=== PATIENT | male | born 1965 | race American Indian/Alaskan Native ===

== ENCOUNTER 2019-08-03 19:30 | Inpatient (IN) | payer MEDICARE ==
--- NOTE | 2019-08-03 20:54 | Emergency Department Report ---
Blank Doc - Documentation Documentation: 54-year-old male that presents with CP and SOB. This initial assessment/diagnostic orders/clinical plan/treatment(s) is/are subject to change based on patient's health status, clinical progression and re- assessment by fellow clinical providers in the ED. Further treatment and workup at subsequent clinical providers discretion. Patient/guardians urged not to elope from the ED as their condition may be serious if not clinically assessed and managed. Initial orders include: 1- Patient sent to MAIN for further evaluation and treatment 2- labs 3- EKG 4- CXR
[2019-08-03 21:16] LABS: Basophils # (Auto) 0.1 K/mm3 (0.0-0.1); Basophils % (Auto) 1.3 % (0.0-1.8); Eosinophils # (Auto) 0.1 K/mm3 (0.0-0.4); Eosinophils % (Auto) 1.3 % (0.0-4.3); Hematocrit 43.1 % (35.5-45.6); Hemoglobin 14.3 gm/dl (11.8-15.2); Lymphocytes # (Auto) 2.8 K/mm3 (1.2-5.4); Lymphocytes % (Auto) 46.7 % (13.4-35.0); Mean Corpuscular HGB Conc 33 % (32-34); Mean Corpuscular Volume 91 fl (84-94); Monocytes # (Auto) 0.4 K/mm3 (0.0-0.8); Monocytes % (Auto) 6.2 % (0.0-7.3); Platelet Count 212 K/mm3 (140-440); Red Blood Count 4.76 M/mm3 (3.65-5.03); Red Cell Distribution Width 15.3 % (13.2-15.2)
[2019-08-03 21:26] LABS: INR 1.04 (0.87-1.13)
[2019-08-03 21:27] LABS: Partial Thromboplastin Time 27.4 Sec. (24.2-36.6)
[2019-08-03 21:41] LABS: Alanine Aminotransferase 10 units/L (7-56); Albumin 3.8 g/dL (3.9-5); BUN/Creatinine Ratio 10; Blood Urea Nitrogen 9 mg/dL (9-20); Calcium 9.2 mg/dL (8.4-10.2); Hemolysis Index 4
--- NOTE | 2019-08-03 21:45 | XRay Report ---
CHEST 2 VIEWS INDICATION / CLINICAL INFORMATION: Chest Pain. COMPARISON: 07/25/2019 FINDINGS: SUPPORT DEVICES: None. HEART / MEDIASTINUM: Moderately enlarged but stable. LUNGS / PLEURA: Chronically increased interstitial markings are seen unchanged. There may be trace ef fusions. No pneumothorax. Right middle lobe density may be chronic. ADDITIONAL FINDINGS: No significant additional findings. IMPRESSION: 1. No significant change Signer Name: Santiago Chester MD Signed: 08/03/2019 9:40 PM Workstation Name: [employer]
[2019-08-03 23:46] LABS: Chol/HDL Ratio 2.61 %; HDL Cholesterol 49 mg/dL (40-59); LDL Cholesterol,Direct 77 mg/dL (50-130)
[2019-08-04] MEDS ORDERED: methylPREDNISolone Sod Succinate 125 MG/2 ML INJ IV ONE (00:53)
[2019-08-04] MEDS ORDERED: FUROSEMIDE 40 MG/4 ML INJ IV ONE (00:53)
[2019-08-04] MEDS ORDERED: IPRATROPIUM/ALBUTEROL SULFATE 3 ML AMPUL.NEB IH ONE (00:53)
[2019-08-04] MEDS ORDERED: ASPIRIN 81 MG TAB CHEW PO ONE (00:54)
--- NOTE | 2019-08-04 01:51 | Emergency Department Report ---
ED Chest Pain HPI - General Chief Complaint: Chest Pain Stated Complaint: CHEST TIGHTNESS/VERONIQUE Time Seen by Provider: 08/03/19 20:53 Source: patient Mode of arrival: Ambulatory Limitations: No Limitations - History of Present Illness Initial Comments: 54-year-old -Portuguese male presents to the emergency department with a complaint of chest tightness and shortness of breath that started this morning. The patient has a past medical history of CHF, hypertension, coronary artery disease with cardiac stents. He is a tobacco smoker but denies any illicit drug use. Patient says that he has been taking his home medications, including diuretics, and has also used an albuterol inhaler, without any relief. Patient was admitted here about 1.5 weeks ago for similar symptoms and also had pneumonia at that time. The patient had a cardiac catheterization done on 06/16 that showed some patent stents and severe LV dysfunction and nonischemic cardiomyopathy. He does not have a primary care physician. 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 Severity scale (0 -10): 3 - Related Data Previous Rx's Medication Instructions Recorded Last Taken Type Amoxicillin/Potassium Clav 1 each PO BID #14 tablet 07/28/19 Unknown Rx [Augmentin 875-125 Tablet] Aspirin [Aspirin BABY CHEW TAB] 81 mg PO QDAY #30 tab.chew 07/28/19 Unknown Rx Carvedilol [Coreg] 3.125 mg PO BID #60 tablet 07/28/19 Unknown Rx Famotidine [Pepcid] 20 mg PO BID #60 tablet 07/28/19 Unknown Rx Furosemide [Lasix TAB] 40 mg PO QDAY #30 tablet 07/28/19 Unknown Rx Lisinopril [Zestril TAB] 20 mg PO QDAY #30 tablet 07/28/19 Unknown Rx Pravastatin [Pravachol] 40 mg PO QHS #30 tablet 07/28/19 Unknown Rx Spironolactone [Aldactone] 25 mg PO QDAY #30 tablet 07/28/19 Unknown Rx Allergies Allergy/AdvReac Type Severity Reaction Status Date / Time shellfish derived Allergy Itching Verified 06/14/19 05:11 Heart Score - HEART Score History: Moderately suspicious EKG: Non-specific Age: 45-65 Risk factors: > 3 risk factors or hx of atherosclerotic disease Troponin: 1-3x normal limit HEART Score: 6 - Critical Actions Critical Actions: 4-6 pts:12-16.6% risk of adverse cardiac event. Should be admitted ED Review of Systems ROS: Stated complaint: CHEST TIGHTNESS/VERONIQUE Other details as noted in HPI Comment: All other systems reviewed and negative Constitutional: denies: chills, fever Eyes: denies: eye pain, vision change ENT: denies: ear pain, throat pain Respiratory: orthopnea, shortness of breath Cardiovascular: chest pain. denies: palpitations Gastrointestinal: denies: abdominal pain, vomiting Genitourinary: denies: dysuria, discharge Musculoskeletal: denies: back pain, arthralgia Skin: denies: rash, lesions Neurological: denies: headache, weakness ED Past Medical Hx - Past Medical History Hx Hypertension: Yes Hx Congestive Heart Failure: Yes Hx Diabetes: No Hx Asthma: No Hx COPD: No Additional medical history: HEART BLOCKAGE 30% 2-3 years ago - Surgical History Additional Surgical History: Rt eye surgery - Social History Smoking Status: Current Every Day Smoker Substance Use Type: None - Medications Home Medications: Home Medications Medication Instructions Recorded Confirmed Last Taken Type Amoxicillin/Potassium Clav 1 each PO BID #14 tablet 07/28/19 Unknown Rx [Augmentin 875-125 Tablet] Aspirin [Aspirin BABY CHEW TAB] 81 mg PO QDAY #30 tab.chew 07/28/19 Unknown Rx Carvedilol [Coreg] 3.125 mg PO BID #60 tablet 07/28/19 Unknown Rx Famotidine [Pepcid] 20 mg PO BID #60 tablet 07/28/19 Unknown Rx Furosemide [Lasix TAB] 40 mg PO QDAY #30 tablet 07/28/19 Unknown Rx Lisinopril [Zestril TAB] 20 mg PO QDAY #30 tablet 07/28/19 Unknown Rx Pravastatin [Pravachol] 40 mg PO QHS #30 tablet 07/28/19 Unknown Rx Spironolactone [Aldactone] 25 mg PO QDAY #30 tablet 07/28/19 Unknown Rx ED Physical Exam - General Limitations: No Limitations - Other Other exam information: GENERAL: The patient is well-developed well-nourished. HENT: Normocephalic. Atraumatic. Patient has moist mucous membranes. EYES: Extraocular motions are intact. NECK: Supple. Trachea is midline. CHEST/LUNGS: Coarse breath sounds throughout the chest. There is expiratory wheezing. Mild tachypnea but no accessory muscle use. There is no respiratory distress noted. HEART/CARDIOVASCULAR: Regular. There is no tachycardia. There is no murmur. ABDOMEN: Abdomen is soft, nontender. Patient has normal bowel sounds. There is no abdominal distention. SKIN: Skin is warm and dry. NEURO: The patient is awake, alert, and oriented. The patient is cooperative. The patient has no focal neurologic deficits. Normal speech. MUSCULOSKELETAL: There is no tenderness or deformity. There is no evidence of acute injury. ED Course Vital Signs 08/03/19 08/04/19 08/04/19 19:37 00:34 01:58 Temperature 98.1 F Pulse Rate 83 74 Pulse Rate [ 82 Bilateral Throughout] Respiratory 20 18 Rate Respiratory 17 Rate [Bilateral Throughout] Blood Pressure 153/117 Blood Pressure 142/111 [Left] O2 Sat by Pulse 98 95 Oximetry MELVIN score - Melvin Score Age > 65: (0) No Aspirin use within the Past 7 Days: (0) No 3 or more CAD Risk Factors: (1) Yes 2 or more Angina events in past 24 hrs: (0) No Known CAD with more than 50% Stenosis: (0) No Elevated Cardiac Markers: (1) Yes ST Deviation Greater than 0.5mm: (0) No MELVIN Score: 2 ED Medical Decision Making - Lab Data Result diagrams: 08/03/19 21:01 08/03/19 21:01 - EKG Data -: EKG Interpreted by Nc EKG shows normal: sinus rhythm, axis (left axis deviation), intervals, QRS complexes, ST-T waves (t wave inversions to lateral leads) Rate: normal - EKG Data When compared to previous EKG there are: no significant change Interpretation: unchanged when compared t (07/26/19) - Radiology Data Radiology results: image reviewed interpreted by me: Chest x-ray does not show any acute process. There are no pleural effusions, obvious pneumonia and there is no pneumothorax. - Medical Decision Making This patient presents with some acute chest pain and shortness of breath since this morning. He has some coarse breath sounds and expiratory wheezing on examination but does not appear in any respiratory distress. Chest x-ray does not show any acute process. Patient has a BNP greater than 3000 which is also increased from his most recent admission. Patient has a elevated troponin level. It does not appear clinically significant for NSTEMI, however it is increased from his previous admission and with current chest pain he will require further evaluation. We will continue to trend her troponins. The patient has been given some Lasix, Solu-Medrol, breathing treatment and aspirin. He will be admitted to the hospital for further evaluation and treatment was accepted for admission by the hospitalist, Dr. Harvey. - Differential Diagnosis SC, CHF, PE, pneumonia Critical Care Time: No Critical care attestation.: If time is entered above; I have spent that time in minutes in the direct care of this critically ill patient, excluding procedure time. ED Disposition Clinical Impression: Acute chest pain Acute exacerbation of CHF (congestive heart failure) Qualifiers: Heart failure type: combined systolic and diastolic Qualified Code(s): I50.43 - Acute on chronic combined systolic (congestive) and diastolic (congestive) heart failure COPD (chronic obstructive pulmonary disease) Qualifiers: COPD type: unspecified COPD Qualified Code(s): J44.9 - Chronic obstructive pulmonary disease, unspecified Disposition: OP ADMIT IP TO THIS HOSP Is pt being admited?: Yes Condition: Fair Instructions: Chest Pain (ED), Chronic Obstructive Pulmonary Disease (ED) Referrals: PRIMARY CARE, [Primary Care Provider] - 3-5 Days Time of Disposition: 02:59
[2019-08-04] MEDS ORDERED: ONDANSETRON 4 MG/2 ML INJ IV PRN (02:30)
[2019-08-04] MEDS ORDERED: DEXTROSE 50% IN WATER (25GM) 50 ML SYRINGE IV PRN (02:30)
--- NOTE | 2019-08-04 02:38 | History and Physical Report ---
History of Present Illness Date of examination: 08/04/19 History of present illness: 54 -year-old man in a history of hypertension, coronary artery disease, CHF comes emergency room with complaints of chest pain started yesterday. Pain is in the right chest which she describes a tightness, intermittent every 3 minutes, intensity 5/10, no radiation, cannot identify exacerbating or relieving factors. Admits to shortness of breath, no nausea vomiting, diaphoresis or palpitation. Status post cardiac cath in May Review Of Systems: Constitutional: no weight loss, fever, chills Ears, eyes, nose, mouth and throat: no nasal congestion, no nasal discharge, no sinus pressure, blurry vision, diplopia Neck: No neck pain or rigidity. Cardiovascular: No palpitations Respiratory: No shortness of breath, cough Gastrointestinal: No hematochezia, abdominal pain Genitourinary : no dysuria, frequency Musculoskeletal: no muscle ache , joint pain Integumentary: no rash, no pruritis Neurological: no parathesias, focal weakness Endocrine: no cold or heat intolerance, no polyuria or polydipsia Hematologic/Lymphatic: no easy bruising, no easy bleeding, no gland swelling Allergic/Immunologic: no urticaria, no angioedema. PAST MEDICAL HISTORY:hypertension, coronary artery disease, CHF PAST SURGICAL HISTORY: none FAMILY HISTORY:hypertension, diabetes SOCIAL HISTORY: Denies tobacco, drugs, alcohol Medications and Allergies Allergies Allergy/AdvReac Type Severity Reaction Status Date / Time shellfish derived Allergy Itching Verified 06/14/19 05:11 Home Medications Medication Instructions Recorded Confirmed Last Taken Type Amoxicillin/Potassium Clav 1 each PO BID #14 tablet 07/28/19 Unknown Rx [Augmentin 875-125 Tablet] Aspirin [Aspirin BABY CHEW TAB] 81 mg PO QDAY #30 tab.chew 07/28/19 Unknown Rx Carvedilol [Coreg] 3.125 mg PO BID #60 tablet 07/28/19 Unknown Rx Famotidine [Pepcid] 20 mg PO BID #60 tablet 07/28/19 Unknown Rx Furosemide [Lasix TAB] 40 mg PO QDAY #30 tablet 07/28/19 Unknown Rx Lisinopril [Zestril TAB] 20 mg PO QDAY #30 tablet 07/28/19 Unknown Rx Pravastatin [Pravachol] 40 mg PO QHS #30 tablet 07/28/19 Unknown Rx Spironolactone [Aldactone] 25 mg PO QDAY #30 tablet 07/28/19 Unknown Rx Exam - Physical Exam Narrative exam: General Apperance: The patient sitting in bed no acute distress HEENT: Normocephalic, atraumatic. Pupils equally round and reactive to light, extraocular movement intact, and no sclericterus or JVD or thyromegaly or nodule. Neck supple, no carotid bruit, mucous membranes moist, no exudate or erythema Heart: S1-S2, regular is rhythm Lungs: Clear to auscultation bilaterally, breathing comfortable Abdomen: Positive bowel sounds, soft, nontender, nondistended, no organomegaly Extremities: No edema cyanosis clubbing Skin: no rash, nodule, warm and dry Neuro:CN 2 -12 intact, motor/sensory intact, speech is fluent - Constitutional Vitals: Temp Pulse Resp BP Pulse Ox 98.1 F 82 17 142/111 95 08/03/19 19:37 08/04/19 01:58 08/04/19 01:58 08/04/19 00:34 08/04/19 00:34 Results - Labs CBC & Chem 7: 08/03/19 21:01 08/03/19 21:01 Labs: Abnormal lab results 08/03/19 08/03/19 08/04/19 Range/Units 21:01 21:01 00:03 RDW 15.3 H (13.2-15.2) % Lymph % (Auto) 46.7 H (13.4-35.0) % Glucose 123 H (75-100) mg/dL Total Bilirubin 1.50 H (0.1-1.2) mg/dL Troponin T 0.041 H 0.037 H (0.00-0.029) ng/mL NT-Pro-B Natriuret Pep 3172 H (0-900) pg/mL Albumin 3.8 L (3.9-5) g/dL - Imaging and Cardiology EKG: image reviewed Chest x-ray: report reviewed Assessment and Plan Asessment Chest pain CAD CHF, stable Hypertension Plan Admit to medicine Check cardiac enzymes,consult cardiology Continue appropiate medicines DVT prophalaxis
[2019-08-04] MEDS: ACETAMINOPHEN 325 MG TAB PO PRN (03:58)
[2019-08-04 05:41] LABS: Basophils % (Auto) 0.5 % (0.0-1.8); Eosinophils % (Auto) 0.5 % (0.0-4.3); Hematocrit 42.2 % (35.5-45.6); Hemoglobin 13.9 gm/dl (11.8-15.2); Lymphocytes # (Auto) 0.8 K/mm3 (1.2-5.4); Lymphocytes % (Auto) 16.5 % (13.4-35.0); Mean Corpuscular HGB Conc 33 % (32-34); Mean Corpuscular Volume 90 fl (84-94); Monocytes # (Auto) 0.1 K/mm3 (0.0-0.8); Monocytes % (Auto) 1.9 % (0.0-7.3); Platelet Count 200 K/mm3 (140-440); Red Blood Count 4.68 M/mm3 (3.65-5.03); Red Cell Distribution Width 15.3 % (13.2-15.2)
[2019-08-04 05:58] LABS: BUN/Creatinine Ratio 11; Blood Urea Nitrogen 9 mg/dL (9-20); Calcium 9.4 mg/dL (8.4-10.2); Hemolysis Index 5
[2019-08-04] MEDS: INSULIN LISPRO 100 UNIT/ML SUB-Q SCH ×4 (09:31→22:55)
[2019-08-04] MEDS ORDERED: FUROSEMIDE 40 MG TAB PO SCH (10:00)
[2019-08-04] MEDS ORDERED: ENOXAPARIN 30 MG/0.3 ML INJ SUB-Q SCH (10:00)
[2019-08-04] MEDS: carvediloL 3.125 MG TAB PO SCH ×2 (11:08→22:04)
[2019-08-04] MEDS: ASPIRIN 81 MG TAB CHEW PO SCH (11:08)
[2019-08-04] MEDS: LISINOPRIL 20 MG TAB PO SCH (11:08)
[2019-08-04] MEDS: SPIRONOLACTONE 25 MG TAB PO SCH (11:08)
[2019-08-04] MEDS: FAMOTIDINE 20 MG TAB PO SCH ×2 (11:08→22:04)
[2019-08-04] MEDS: ENOXAPARIN 40 MG/0.4 ML INJ SUB-Q SCH (11:09)
--- NOTE | 2019-08-04 13:41 | Consultation ---
History of Present Illness Consult date: 08/04/19 Requesting physician: ELAN HUNTER Consult reason: chest pain History of present illness: The pt is a 54 YO male with a past medical history of CAD s/p PCI, ICMP, HFrEF, HTN, HLP. He is followed in our office by Dr. Cassidy. He presented with c/o SOB and chest pain since yesterday. He describes his chest pain as an intermittent midsternal tightness, no clear aggravating or alleviating factors. The chest pain has resolved since admission. He denies any swelling, palpitations, n/v, diaphoresis, dizziness or syncope. Of note, pt was discharged from [facility] on 07/28/2019 following eval/management of PNA and HFrEF. LHC done 05/2019 showed left main patent, LAD patent stents, circ patent, ramus upper branch patent stent, lower branch patent, OM1 and OM2 patent, RCA mid stent patent with mild irregularities, severe LV dysfunction. Echo done 05/2019 showed EF 10-15%, mild LVH, RV systolic function mildly reduced, trace AR and MR, mild to mod TR, RVSP 36mmHg. Past History Past Medical History: other (as per HPI) Medications and Allergies Allergies Allergy/AdvReac Type Severity Reaction Status Date / Time shellfish derived Allergy Itching Verified 06/14/19 05:11 Home Medications Medication Instructions Recorded Confirmed Last Taken Type Aspirin [Aspirin BABY CHEW TAB] 81 mg PO QDAY #30 tab.chew 07/28/19 08/04/19 Unknown Rx Carvedilol [Coreg] 3.125 mg PO BID #60 tablet 07/28/19 08/04/19 Unknown Rx Famotidine [Pepcid] 20 mg PO BID #60 tablet 07/28/19 08/04/19 Unknown Rx Furosemide [Lasix TAB] 40 mg PO QDAY #30 tablet 07/28/19 08/04/19 Unknown Rx Lisinopril [Zestril TAB] 20 mg PO QDAY #30 tablet 07/28/19 08/04/19 Unknown Rx Pravastatin [Pravachol] 40 mg PO QHS #30 tablet 07/28/19 08/04/19 Unknown Rx Spironolactone [Aldactone] 25 mg PO QDAY #30 tablet 07/28/19 08/04/19 Unknown Rx Active Meds: Active Medications Acetaminophen (Tylenol) 650 mg PO Q4H PRN PRN Reason: Pain MILD(1-3)/Fever >100.5/MCKEON Last Admin: 08/04/19 03:58 Dose: 650 mg Documented by: Aspirin (Baby Aspirin) 81 mg PO QDAY [facility] Last Admin: 08/04/19 11:08 Dose: 81 mg Documented by: Carvedilol (Coreg) 3.125 mg PO BID [facility] Last Admin: 08/04/19 11:08 Dose: 3.125 mg Documented by: Dextrose (D50w (25gm) Syringe) 50 ml IV Q30MIN PRN; Protocol PRN Reason: Hypoglycemia Enoxaparin Sodium (Enoxaparin) 40 mg SUB-Q QDAY@1000 [facility] Last Admin: 08/04/19 11:09 Dose: 40 mg Documented by: Famotidine (Pepcid) 20 mg PO BID [facility] Last Admin: 08/04/19 11:08 Dose: 20 mg Documented by: Furosemide (Lasix) 40 mg PO QDAY [facility] Last Admin: 08/04/19 11:08 Dose: 40 mg Documented by: Insulin Human Lispro (Humalog) 0 unit SUB-Q [facility]; Protocol Last Admin: 08/04/19 11:10 Dose: Not Given Documented by: Lisinopril (Zestril) 20 mg PO QDAY [facility] Last Admin: 08/04/19 11:08 Dose: 20 mg Documented by: Ondansetron HCl (Zofran) 4 mg IV Q8H PRN PRN Reason: Nausea And Vomiting Oxycodone/Acetaminophen (Percocet 5/325) 1 tab PO Q6H PRN PRN Reason: Pain, Moderate (4-6) Pravastatin Sodium (Pravachol) 40 mg PO QHS [facility] Sodium Chloride (Sodium Chloride Flush Syringe 10 Ml) 10 ml IV BID [facility] Last Admin: 08/04/19 11:09 Dose: 10 ml Documented by: Sodium Chloride (Sodium Chloride Flush Syringe 10 Ml) 10 ml IV PRN PRN PRN Reason: LINE FLUSH Spironolactone (Aldactone) 25 mg PO QDAY [facility] Last Admin: 08/04/19 11:08 Dose: 25 mg Documented by: Review of Systems Constitutional: no weight loss, no weight gain, no fever, no chills, no sweats Ears, nose, mouth and throat: no ear pain, no nose pain, no sinus pressure, no sinus pain Cardiovascular: orthopnea, shortness of breath, dyspnea on exertion, no chest pain, no palpitations, no rapid/irregular heart beat, no edema, no syncope, no lightheadedness, no leg edema Respiratory: shortness of breath, dyspnea on exertion, no cough, no congestion, no wheezing, no pain on inspiration Gastrointestinal: no abdominal pain, no nausea, no vomiting, no diarrhea, no constipation, no change in bowel habits Genitourinary Male: no dysuria, no hematuria, no flank pain, no discharge, no urinary frequency, no urinary hesitancy Musculoskeletal: no neck stiffness, no neck pain, no shooting arm pain, no arm numbness/tingling, no low back pain, no shooting leg pain Integumentary: no rash, no pruritis, no redness, no sores, no wounds Neurological: no head injury, no paralysis, no weakness, no parathesias, no numbness, no tingling, no seizures, no syncope Psychiatric: no anxiety Endocrine: no cold intolerance, no heat intolerance Hematologic/Lymphatic: no easy bruising, no easy bleeding Allergic/Immunologic: no urticaria, no wheezing Physical Examination Vital Signs Temp Pulse Resp BP Pulse Ox 98.1 F 83 20 153/117 98 08/03/19 19:37 08/03/19 19:37 08/03/19 19:37 08/03/19 19:37 08/03/19 19:37 General appearance: no acute distress HEENT: Positive: PERRL, Normocephaly, Mucus Membranes Moist Neck: Positive: neck supple, trachea midline Cardiac: Positive: Reg Rate and Rhythm, S1/S2 Lungs: Positive: Decreased Breath Sounds Neuro: Positive: Grossly Intact Abdomen: Negative: Tender Skin: Negative: Rash Musculoskeletal: No Pain Extremities: Absent: edema Results 08/04/19 04:44 08/04/19 04:44 Cardiac Enzymes 08/03/19 Range/Units 21:01 AST 14 (5-40) units/L Coagulation 08/03/19 Range/Units 21:01 PT 13.5 (12.2-14.9) Sec. INR 1.04 (0.87-1.13) APTT 27.4 (24.2-36.6) Sec. Lipids 08/03/19 Range/Units 21:01 Triglycerides 91 (2-149) mg/dL Cholesterol 128 (50-199) mg/dL HDL Cholesterol 49 (40-59) mg/dL Cholesterol/HDL Ratio 2.61 % CBC 08/03/19 08/04/19 Range/Units 21:01 04:44 WBC 5.9 5.1 (4.5-11.0) K/mm3 RBC 4.76 4.68 (3.65-5.03) M/mm3 Hgb 14.3 13.9 (11.8-15.2) gm/dl Hct 43.1 42.2 (35.5-45.6) % Plt Count 212 200 (140-440) K/mm3 Lymph # 2.8 0.8 L (1.2-5.4) K/mm3 [place] # 0.4 0.1 (0.0-0.8) K/mm3 Eos # 0.1 0.0 (0.0-0.4) K/mm3 Baso # 0.1 0.0 (0.0-0.1) K/mm3 Comprehensive Metabolic Panel 08/03/19 08/04/19 Range/Units 21:01 04:44 Sodium 144 145 (137-145) mmol/L Potassium 3.9 4.1 (3.6-5.0) mmol/L Chloride 105.5 103.7 (98-107) mmol/L Carbon Dioxide 27 27 (22-30) mmol/L BUN 9 9 (9-20) mg/dL Creatinine 0.9 0.8 (0.8-1.5) mg/dL Glucose 123 H 134 H (75-100) mg/dL Calcium 9.2 9.4 (8.4-10.2) mg/dL AST 14 (5-40) units/L ALT 10 (7-56) units/L Alkaline Phosphatase 65 (35-129) units/L Total Protein 6.6 (6.3-8.2) g/dL Albumin 3.8 L (3.9-5) g/dL - Imaging and Cardiology Echo: report reviewed (05/2019 showed EF 10-15%, mild LVH, RV systolic function mildly reduced, trace AR and MR, mild to mod TR, RVSP 36mmHg. ) Cardiac cath: report reviewed (05/2019 showed left main patent, LAD patent stents, circ patent, ramus upper branch patent stent, lower branch patent, OM1 and OM2 patent, RCA mid stent patent with mild irregularities, severe LV dysfunction. ) EKG: report reviewed, image reviewed EKG interpretations - Telemetry EKG Rhythm: Sinus Rhythm - EKG Sinus rhythms and dysrhythmias: sinus rhythm Assessment and Plan Cont GDMT and IV diuretics. Pt noted to have brief runs NSVT and is known to have severe ICMP with EF 10-15% and thus cardiac defibrillator is recommended. Pt is agreeable to LifeVest at this time and will plan to evaluate for AICD candidacy as OP. LifeVest ordered today. The patient has been seen in conjunction with Dr. Schwarz who agrees with the as sessment and plan of care. - Patient Problems (1) Acute on chronic HFrEF (heart failure with reduced ejection fraction) Current Visit: Yes Status: Acute (2) Chest pain Current Visit: Yes Status: Resolved (3) Ischemic cardiomyopathy Current Visit: Yes Status: Chronic (4) CAD (coronary artery disease) Current Visit: Yes Status: Chronic Qualifiers: Coronary Disease-Associated Artery/Lesion type: [place] artery [place] vs. transplanted heart: [place] heart Associated angina: without angina Qualified Code(s): I25.10 - Atherosclerotic heart disease of [place] coronary artery without angina pectoris (5) Stented coronary artery Current Visit: Yes Status: Chronic (6) HTN (hypertension) Current Visit: Yes Status: Chronic (7) Hyperlipidemia Current Visit: Yes Status: Chronic Qualifiers: Hyperlipidemia type: mixed hyperlipidemia Qualified Code(s): E78.2 - Mixed hyperlipidemia (8) History of alcohol abuse Current Visit: Yes Status: Chronic (9) Tobacco use Current Visit: Yes Status: Chronic (10) NSVT Current Visit: Yes Status: Acute
--- NOTE | 2019-08-04 16:29 | Progress Note ---
Assessment and Plan Assessment and plan: Patient is a 54 yo man with a past medical history of CAD s/p PCI, ICMP, HFrEF, HTN and HLP who presented to [facility] ED with chest pains, sob. He was just discharge from here ([facility]) on 07/28/2019 after treat of PNA and HFrEF. He is being admitted for CHF exacerbation. Pt noted to have brief runs NSVT and is known to have severe ICMP with EF 10-15% and thus cardiac defibrillator is recommended. Pt is agreeable to LifeVest at this time and will plan to evaluate for AICD candidacy as OP. LifeVest ordered today. * LHC done 05/2019 showed left main patent, LAD patent stents, circ patent, ramus upper branch patent stent, lower branch patent, OM1 and OM2 patent, RCA mid stent patent with mild irregularities, severe LV dysfunction. * Echo done 05/2019 showed EF 10-15%, mild LVH, RV systolic function mildly reduced, trace AR and MR, mild to mod TR, RVSP 36mmHg. * Cardiac cath: report reviewed (05/2019 showed left main patent, LAD patent stents, circ patent, ramus upper branch patent stent, lower branch patent, OM1 and OM2 patent, RCA mid stent patent with mild irregularities, severe LV dysfunction. ) * 2v CXR FINDINGS: SUPPORT DEVICES: None. HEART / MEDIASTINUM: Moderately enlarged but stable. LUNGS / PLEURA: Chronically increased interstitial markings are seen unchanged. There may be trace effusions. No pneumothorax. Right middle lobe density may be chronic. ADDITIONAL FINDINGS: No significant additional findings. IMPRESSION: 1. No significant change Acute on chronic systolic heart failure: treat with diuretics NSVT with EF 10-15%: LIFEVEST Chest pains, angina: treat medically, Cardiology is following, continue telemetry H/o Ischemic cardiomyopathy H/O CAD (coronary artery disease) H/O Stented coronary artery HTN (hypertension) Hyperlipidemia type: mixed hyperlipidemia Qualified Code(s): E78.2 - Mixed hyperlipidemia History of alcohol abuse Tobacco use: res counselor on stopping, he is down to 1-2 cigs/day Disposition: LIFEVEST pending History Interval history: Patient was seen and examined. Follow-up on current diagnosis of CHF. No overni ght events reported to me. Patient denies any nausea/vomiting or severe headaches. Imaging, nursing note, chart, labs and old chart reviewed. Discussed with patient. Gen: WDWN, NAD, Awake, Alert, Orientated HEENT: NCAT, EOMI, PERRL, OP Clear Neck: supple, no adenopathy, no thyromegaly, no JVD CVS/Heart: RRR, normal S1S2, pulses present bilaterally Chest/Lungs: diminished bs bilateral, Symmetrical chest expansion, good air entry bilaterally GI/Abdomen: soft, NTND, good bowel sounds, no guarding or rebound /Bladder: no suprapubic tenderness, no CVA or paraspinal tenderness Extermity/Skin: no c/c/e, no obvious rash MSK: FROM x 4 Neuro: CN 2-12 grossly intact, no new focal deficits Psych: calm Hospitalist Physical - Constitutional Vitals: Temp Pulse Resp BP Pulse Ox 98.1 F 65 18 125/89 98 08/04/19 15:49 08/04/19 15:49 08/04/19 15:49 08/04/19 15:49 08/04/19 15:49 General appearance: Present: no acute distress Results - Labs CBC & Chem 7: 08/04/19 04:44 08/04/19 04:44 Labs: Laboratory Last Values WBC 5.1 K/mm3 (4.5-11.0) 08/04/19 04:44 RBC 4.68 M/mm3 (3.65-5.03) 08/04/19 04:44 Hgb 13.9 gm/dl (11.8-15.2) 08/04/19 04:44 Hct 42.2 % (35.5-45.6) 08/04/19 04:44 MCV 90 fl (84-94) 08/04/19 04:44 MCH 30 pg (28-32) 08/04/19 04:44 MCHC 33 % (32-34) 08/04/19 04:44 RDW 15.3 % (13.2-15.2) H 08/04/19 04:44 Plt Count 200 K/mm3 (140-440) 08/04/19 04:44 Lymph % (Auto) 16.5 % (13.4-35.0) 08/04/19 04:44 [place] % (Auto) 1.9 % (0.0-7.3) 08/04/19 04:44 Eos % (Auto) 0.5 % (0.0-4.3) 08/04/19 04:44 Baso % (Auto) 0.5 % (0.0-1.8) 08/04/19 04:44 Lymph # 0.8 K/mm3 (1.2-5.4) L 08/04/19 04:44 [place] # 0.1 K/mm3 (0.0-0.8) 08/04/19 04:44 Eos # 0.0 K/mm3 (0.0-0.4) 08/04/19 04:44 Baso # 0.0 K/mm3 (0.0-0.1) 08/04/19 04:44 Seg Neutrophils % 80.6 % (40.0-70.0) H 08/04/19 04:44 Seg Neutrophils # 4.2 K/mm3 (1.8-7.7) 08/04/19 04:44 PT 13.5 Sec. (12.2-14.9) 08/03/19 21:01 INR 1.04 (0.87-1.13) 08/03/19 21:01 APTT 27.4 Sec. (24.2-36.6) 08/03/19 21:01 D-Dimer 233.21 ng/mlDDU (0-234) 08/04/19 00:03 Sodium 145 mmol/L (137-145) 08/04/19 04:44 Potassium 4.1 mmol/L (3.6-5.0) 08/04/19 04:44 Chloride 103.7 mmol/L (98-107) 08/04/19 04:44 Carbon Dioxide 27 mmol/L (22-30) 08/04/19 04:44 Anion Gap 18 mmol/L 08/04/19 04:44 BUN 9 mg/dL (9-20) 08/04/19 04:44 Creatinine 0.8 mg/dL (0.8-1.5) 08/04/19 04:44 Estimated GFR > 60 ml/min 08/04/19 04:44 BUN/Creatinine Ratio 11 % 08/04/19 04:44 Glucose 134 mg/dL (75-100) H 08/04/19 04:44 POC Glucose 145 (70-105) H 08/04/19 16:01 Calcium 9.4 mg/dL (8.4-10.2) 08/04/19 04:44 Total Bilirubin 1.50 mg/dL (0.1-1.2) H 08/03/19 21:01 AST 14 units/L (5-40) 08/03/19 21:01 ALT 10 units/L (7-56) 08/03/19 21:01 Alkaline Phosphatase 65 units/L (35-129) 08/03/19 21:01 Troponin T 0.037 ng/mL (0.00-0.029) H 08/04/19 00:03 NT-Pro-B Natriuret Pep 3172 pg/mL (0-900) H 08/04/19 00:03 Total Protein 6.6 g/dL (6.3-8.2) 08/03/19 21:01 Albumin 3.8 g/dL (3.9-5) L 08/03/19 21:01 Albumin/Globulin Ratio 1.4 % 08/03/19 21:01 Triglycerides 91 mg/dL (2-149) 08/03/19 21:01 Cholesterol 128 mg/dL (50-199) 08/03/19 21:01 LDL Cholesterol Direct 77 mg/dL (50-130) 08/03/19 21:01 HDL Cholesterol 49 mg/dL (40-59) 08/03/19 21:01 Cholesterol/HDL Ratio 2.61 % 08/03/19 21:01 Active Medications - Current Medications Current Medications: Generic Name Dose Route Start Last Admin Trade Name Freq PRN Reason Stop Dose Admin Acetaminophen 650 mg 08/04/19 02:30 08/04/19 03:58 Tylenol PO 650 mg Q4H PRN Administration Pain MILD(1-3)/Fever >100.5/MCKEON Aspirin 81 mg 08/04/19 10:00 08/04/19 11:08 Baby Aspirin PO 81 mg QDAY MELISSA Administration Carvedilol 3.125 mg 08/04/19 10:00 08/04/19 11:08 Coreg PO 3.125 mg BID MELISSA Administration Dextrose 50 ml 08/04/19 02:30 D50w (25gm) Syringe IV Q30MIN PRN Hypoglycemia Protocol Enoxaparin Sodium 40 mg 08/04/19 10:00 08/04/19 11:09 Enoxaparin SUB-Q 40 mg QDAY@1000 MELISSA Administration Famotidine 20 mg 08/04/19 10:00 08/04/19 11:08 Pepcid PO 20 mg BID MELISSA Administration Furosemide 40 mg 08/05/19 10:00 Lasix IV QDAY [facility] Insulin Human Lispro 0 unit 08/04/19 07:30 08/04/19 11:10 Humalog SUB-Q Not Given [facility] Protocol Lisinopril 20 mg 08/04/19 10:00 08/04/19 11:08 Zestril PO 20 mg QDAY MELISSA Administration Ondansetron HCl 4 mg 08/04/19 02:30 Zofran IV Q8H PRN Nausea And Vomiting Oxycodone/Acetaminophen 1 tab 08/04/19 02:30 Percocet 5/325 PO Q6H PRN Pain, Moderate (4-6) Pravastatin Sodium 40 mg 08/04/19 22:00 Pravachol PO QHS [facility] Sodium Chloride 10 ml 08/04/19 10:00 08/04/19 11:09 Sodium Chloride Flush Syringe 10 Ml IV 10 ml BID MELISSA Administration Sodium Chloride 10 ml 08/04/19 02:30 Sodium Chloride Flush Syringe 10 Ml IV PRN PRN LINE FLUSH Spironolactone 25 mg 08/04/19 10:00 08/04/19 11:08 Aldactone PO 25 mg QDAY MELISSA Administration
[2019-08-04] MEDS: oxyCODONE /ACETAMINOPHEN 5-325MG TAB PO PRN (17:37)
[2019-08-04] MEDS: PRAVASTATIN 40 MG TAB PO SCH (22:04)
[2019-08-05] MEDS: oxyCODONE /ACETAMINOPHEN 5-325MG TAB PO PRN ×2 (00:55→18:22)
[2019-08-05 07:01] LABS: BUN/Creatinine Ratio 14; Blood Urea Nitrogen 14 mg/dL (9-20); Calcium 8.8 mg/dL (8.4-10.2); Hemolysis Index 1
[2019-08-05] MEDS: INSULIN LISPRO 100 UNIT/ML SUB-Q SCH ×4 (08:43→22:25)
[2019-08-05] MEDS: FAMOTIDINE 20 MG TAB PO SCH ×2 (09:47→22:32)
[2019-08-05] MEDS: ASPIRIN 81 MG TAB CHEW PO SCH (09:47)
[2019-08-05] MEDS: LISINOPRIL 20 MG TAB PO SCH (09:48)
[2019-08-05] MEDS: carvediloL 3.125 MG TAB PO SCH ×2 (09:48→22:24)
[2019-08-05] MEDS: SPIRONOLACTONE 25 MG TAB PO SCH (09:48)
[2019-08-05] MEDS: ENOXAPARIN 40 MG/0.4 ML INJ SUB-Q SCH (09:49)
[2019-08-05] MEDS ORDERED: FUROSEMIDE 40 MG/4 ML INJ IV SCH (10:00)
--- NOTE | 2019-08-05 13:07 | Progress Note ---
Assessment and Plan The patient's cardiac status is improving. Continue current management for now. The patient has been seen in conjunction with Dr. Hyde, who agrees with the assessment and plan. - Patient Problems (1) NSVT (nonsustained ventricular tachycardia) Current Visit: Yes Status: Acute (2) Acute chest pain Current Visit: Yes Status: Acute (3) Acute on chronic HFrEF (heart failure with reduced ejection fraction) Current Visit: No Status: Acute (4) CAD (coronary artery disease) Current Visit: No Status: Chronic Qualifiers: Coronary Disease-Associated Artery/Lesion type: [place] artery [place] vs. transplanted heart: [place] heart Associated angina: without angina Qualified Code(s): I25.10 - Atherosclerotic heart disease of [place] coronary artery without angina pectoris (5) HTN (hypertension) Current Visit: No Status: Chronic (6) Ischemic cardiomyopathy Current Visit: No Status: Chronic Subjective Date of service: 08/05/19 Interval history: The patient is lying in bed in NAD. He still c/o chest pain and SOB. Telemetry reviewed - SR in 60s with 12-beat run of NSVT noted. Lifevest in place. Objective Vital Signs Temp Pulse Resp BP BP Pulse Ox 08/05/19 09:48 62 122/89 08/05/19 08:51 95 08/05/19 08:41 58 L 18 104/79 08/05/19 04:50 98.4 F 59 L 19 101/63 95 08/05/19 00:56 58 L 08/05/19 00:55 18 08/04/19 23:50 98.2 F 61 20 105/70 96 08/04/19 23:48 100 08/04/19 22:04 60 121/80 08/04/19 22:00 99 08/04/19 19:43 98.4 F 60 17 121/80 99 08/04/19 19:30 68 08/04/19 15:49 98.1 F 65 18 125/89 98 - Physical Examination General: No Apparent Distress HEENT: Positive: PERRL, Normocephaly, Mucus Membranes Moist Neck: Positive: neck supple, trachea midline Cardiac: Positive: Reg Rate and Rhythm Lungs: Positive: Normal Exam Neuro: Positive: Grossly Intact Abdomen: Positive: Unremarkable. Negative: Tender /Rectal: Other (deferred) Skin: Positive: Clear. Negative: Rash Musculoskeletal: No Pain Extremities: Present: normal. Absent: edema - Labs and Meds Comprehensive Metabolic Panel 08/05/19 Range/Units 04:37 Sodium 142 (137-145) mmol/L Potassium 3.8 (3.6-5.0) mmol/L Chloride 101.6 (98-107) mmol/L Carbon Dioxide 29 (22-30) mmol/L BUN 14 (9-20) mg/dL Creatinine 1.0 (0.8-1.5) mg/dL Glucose 83 (75-100) mg/dL Calcium 8.8 (8.4-10.2) mg/dL - Imaging and Cardiology EKG: report reviewed, image reviewed Echo: report reviewed (05/2019 showed EF 10-15%, mild LVH, RV systolic function mildly reduced, trace AR and MR, mild to mod TR, RVSP 36mmHg. ) Cardiac cath: report reviewed (05/2019 showed left main patent, LAD patent stents, circ patent, ramus upper branch patent stent, lower branch patent, OM1 and OM2 patent, RCA mid stent patent with mild irregularities, severe LV dysfunction. ) - Telemetry EKG Rhythm: Sinus Rhythm (with NSVT) - EKG Sinus rhythms and dysrhythmias: sinus rhythm
--- NOTE | 2019-08-05 15:25 | Progress Note ---
Assessment and Plan Assessment and plan: Patient is a 54 yo man with a past medical history of CAD s/p PCI, ICMP, HFrEF, HTN and HLP who presented to [facility] ED with chest pains, sob. He was just discharge from here ([facility]) on 07/28/2019 after treat of PNA and HFrEF. He is being admitted for CHF exacerbation. Pt noted to have brief runs NSVT and is known to have severe ICMP with EF 10-15% and thus cardiac defibrillator is recommended. Pt is agreeable to LifeVest at this time and will plan to evaluate for AICD candidacy as OP. LifeVest ordered today. * LHC done 05/2019 showed left main patent, LAD patent stents, circ patent, ramus upper branch patent stent, lower branch patent, OM1 and OM2 patent, RCA mid stent patent with mild irregularities, severe LV dysfunction. * Echo done 05/2019 showed EF 10-15%, mild LVH, RV systolic function mildly reduced, trace AR and MR, mild to mod TR, RVSP 36mmHg. * Cardiac cath: report reviewed (05/2019 showed left main patent, LAD patent stents, circ patent, ramus upper branch patent stent, lower branch patent, OM1 and OM2 patent, RCA mid stent patent with mild irregularities, severe LV dysfunction. ) * 2v CXR FINDINGS: SUPPORT DEVICES: None. HEART / MEDIASTINUM: Moderately enlarged but stable. LUNGS / PLEURA: Chronically increased interstitial markings are seen unchanged. There may be trace effusions. No pneumothorax. Right middle lobe density may be chronic. ADDITIONAL FINDINGS: No significant additional findings. IMPRESSION: 1. No significant change Acute on chronic systolic heart failure: treat with diuretics NSVT with EF 10-15%: LIFEVEST Chest pains, angina: treat medically, Cardiology is following, continue telemetry H/o Ischemic cardiomyopathy H/O CAD (coronary artery disease) H/O Stented coronary artery HTN (hypertension) Hyperlipidemia type: mixed hyperlipidemia Qualified Code(s): E78.2 - Mixed hyperlipidemia History of alcohol abuse Tobacco use: preparole counseling aide on stopping, he is down to 1-2 cigs/day Disposition: continue inpatient care, patient had 12 beat run of NSVT, LIFEVEST on, discharge once Cardiology clears. History Interval history: Patient was seen and examined. Follow-up on current diagnosis of CHF. No overnight events reported to me. Patient denies any nausea/vomiting or severe headaches. Imaging, nursing note, chart, labs and old chart reviewed. Discussed with patient. Gen: WDWN, NAD, Awake, Alert, Orientated HEENT: NCAT, EOMI, PERRL, OP Clear Neck: supple, no adenopathy, no thyromegaly, no JVD CVS/Heart: RRR, normal S1S2, pulses present bilaterally Chest/Lungs: diminished bs bilateral, Symmetrical chest expansion, good air entry bilaterally GI/Abdomen: soft, NTND, good bowel sounds, no guarding or rebound /Bladder: no suprapubic tenderness, no CVA or paraspinal tenderness Extermity/Skin: no c/c/e, no obvious rash MSK: FROM x 4 Neuro: CN 2-12 grossly intact, no new focal deficits Psych: calm Hospitalist Physical - Physical exam Narrative exam: Gen: WDWN, NAD, Awake, Alert, Orientated x3, lifeVEST on HEENT: NCAT, EOMI, PERRL, OP Clear Neck: supple, no adenopathy, no thyromegaly, no JVD CVS/Heart: RRR, normal S1S2, pulses present bilaterally Chest/Lungs: CTA B, Symmetrical chest expansion, good air entry bilaterally GI/Abdomen: soft, NTND, good bowel sounds, no guarding or rebound /Bladder: no suprapubic tenderness, no CVA or paraspinal tenderness Extermity/Skin: no c/c/e, no obvious rash MSK: FROM x 4 Neuro: CN 2-12 grossly intact, no new focal deficits Psych: calm - Constitutional Vitals: Temp Pulse Resp BP Pulse Ox 98.4 F 62 18 122/89 95 08/05/19 04:50 08/05/19 09:48 08/05/19 08:41 08/05/19 09:48 08/05/19 08:51 General appearance: Present: no acute distress Results - Labs CBC & Chem 7: 08/04/19 04:44 08/05/19 04:37 Labs: Laboratory Last Values WBC 5.1 K/mm3 (4.5-11.0) 08/04/19 04:44 RBC 4.68 M/mm3 (3.65-5.03) 08/04/19 04:44 Hgb 13.9 gm/dl (11.8-15.2) 08/04/19 04:44 Hct 42.2 % (35.5-45.6) 08/04/19 04:44 MCV 90 fl (84-94) 08/04/19 04:44 MCH 30 pg (28-32) 08/04/19 04:44 MCHC 33 % (32-34) 08/04/19 04:44 RDW 15.3 % (13.2-15.2) H 08/04/19 04:44 Plt Count 200 K/mm3 (140-440) 08/04/19 04:44 Lymph % (Auto) 16.5 % (13.4-35.0) 08/04/19 04:44 [place] % (Auto) 1.9 % (0.0-7.3) 08/04/19 04:44 Eos % (Auto) 0.5 % (0.0-4.3) 08/04/19 04:44 Baso % (Auto) 0.5 % (0.0-1.8) 08/04/19 04:44 Lymph # 0.8 K/mm3 (1.2-5.4) L 08/04/19 04:44 [place] # 0.1 K/mm3 (0.0-0.8) 08/04/19 04:44 Eos # 0.0 K/mm3 (0.0-0.4) 08/04/19 04:44 Baso # 0.0 K/mm3 (0.0-0.1) 08/04/19 04:44 Seg Neutrophils % 80.6 % (40.0-70.0) H 08/04/19 04:44 Seg Neutrophils # 4.2 K/mm3 (1.8-7.7) 08/04/19 04:44 PT 13.5 Sec. (12.2-14.9) 08/03/19 21:01 INR 1.04 (0.87-1.13) 08/03/19 21:01 APTT 27.4 Sec. (24.2-36.6) 08/03/19 21:01 D-Dimer 233.21 ng/mlDDU (0-234) 08/04/19 00:03 Sodium 142 mmol/L (137-145) 08/05/19 04:37 Potassium 3.8 mmol/L (3.6-5.0) 08/05/19 04:37 Chloride 101.6 mmol/L (98-107) 08/05/19 04:37 Carbon Dioxide 29 mmol/L (22-30) 08/05/19 04:37 Anion Gap 15 mmol/L 08/05/19 04:37 BUN 14 mg/dL (9-20) 08/05/19 04:37 Creatinine 1.0 mg/dL (0.8-1.5) 08/05/19 04:37 Estimated GFR > 60 ml/min 08/05/19 04:37 BUN/Creatinine Ratio 14 % 08/05/19 04:37 Glucose 83 mg/dL (75-100) 08/05/19 04:37 POC Glucose 117 (70-105) H 08/05/19 12:05 Calcium 8.8 mg/dL (8.4-10.2) 08/05/19 04:37 Magnesium 1.80 mg/dL (1.7-2.3) 08/05/19 04:37 Total Bilirubin 1.50 mg/dL (0.1-1.2) H 08/03/19 21:01 AST 14 units/L (5-40) 08/03/19 21:01 ALT 10 units/L (7-56) 08/03/19 21:01 Alkaline Phosphatase 65 units/L (35-129) 08/03/19 21:01 Troponin T 0.037 ng/mL (0.00-0.029) H 08/04/19 00:03 NT-Pro-B Natriuret Pep 3172 pg/mL (0-900) H 08/04/19 00:03 Total Protein 6.6 g/dL (6.3-8.2) 08/03/19 21:01 Albumin 3.8 g/dL (3.9-5) L 08/03/19 21:01 Albumin/Globulin Ratio 1.4 % 08/03/19 21:01 Triglycerides 91 mg/dL (2-149) 08/03/19 21:01 Cholesterol 128 mg/dL (50-199) 08/03/19 21:01 LDL Cholesterol Direct 77 mg/dL (50-130) 08/03/19 21:01 HDL Cholesterol 49 mg/dL (40-59) 08/03/19 21:01 Cholesterol/HDL Ratio 2.61 % 08/03/19 21:01 Active Medications - Current Medications Current Medications: Generic Name Dose Route Start Last Admin Trade Name Freq PRN Reason Stop Dose Admin Acetaminophen 650 mg 08/04/19 02:30 08/04/19 03:58 Tylenol PO 650 mg Q4H PRN Administration Pain MILD(1-3)/Fever >100.5/MCKEON Aspirin 81 mg 08/04/19 10:00 08/05/19 09:47 Baby Aspirin PO 81 mg QDAY MELISSA Administration Carvedilol 3.125 mg 08/04/19 10:00 08/05/19 09:48 Coreg PO 3.125 mg BID MELISSA Administration Dextrose 50 ml 08/04/19 02:30 D50w (25gm) Syringe IV Q30MIN PRN Hypoglycemia Protocol Enoxaparin Sodium 40 mg 08/04/19 10:00 08/05/19 09:49 Enoxaparin SUB-Q 40 mg QDAY@1000 MELISSA Administration Famotidine 20 mg 08/04/19 10:00 08/05/19 09:47 Pepcid PO 20 mg BID MELISSA Administration Furosemide 40 mg 08/05/19 10:00 08/05/19 09:49 Lasix IV 40 mg QDAY MELISSA Administration Insulin Human Lispro 0 unit 08/04/19 07:30 08/05/19 12:30 Humalog SUB-Q Not Given [facility] Protocol Lisinopril 20 mg 08/04/19 10:00 08/05/19 09:48 Zestril PO 20 mg QDAY MELISSA Administration Ondansetron HCl 4 mg 08/04/19 02:30 Zofran IV Q8H PRN Nausea And Vomiting Oxycodone/Acetaminophen 1 tab 08/04/19 02:30 08/05/19 00:55 Percocet 5/325 PO 1 tab Q6H PRN Administration Pain, Moderate (4-6) Pravastatin Sodium 40 mg 08/04/19 22:00 08/04/19 22:04 Pravachol PO 40 mg QHS MELISSA Administration Sodium Chloride 10 ml 08/04/19 10:00 08/05/19 09:49 Sodium Chloride Flush Syringe 10 Ml IV 10 ml BID MELISSA Administration Sodium Chloride 10 ml 08/04/19 02:30 Sodium Chloride Flush Syringe 10 Ml IV PRN PRN LINE FLUSH Spironolactone 25 mg 08/04/19 10:00 08/05/19 09:48 Aldactone PO 25 mg QDAY MELISSA Administration
[2019-08-05] MEDS: PRAVASTATIN 40 MG TAB PO SCH (22:32)
[2019-08-06] MEDS: ACETAMINOPHEN 325 MG TAB PO PRN ×2 (06:51→23:41)
[2019-08-06] MEDS: INSULIN LISPRO 100 UNIT/ML SUB-Q SCH ×4 (08:00→22:50)
[2019-08-06 09:42] LABS: BUN/Creatinine Ratio 18; Blood Urea Nitrogen 16 mg/dL (9-20); Calcium 8.9 mg/dL (8.4-10.2); Hemolysis Index 2
--- NOTE | 2019-08-06 09:48 | Progress Note ---
Assessment and Plan Will transition to PO Lasix. Monitor BMP closely. Continue other cardiac management for now - intermittent bradycardia and low blood pressures noted. The patient has been seen in conjunction with Dr. Hyde, who agrees with the assessment and plan. - Patient Problems (1) NSVT (nonsustained ventricular tachycardia) Current Visit: Yes Status: Acute (2) Acute chest pain Current Visit: Yes Status: Acute (3) Acute on chronic HFrEF (heart failure with reduced ejection fraction) Current Visit: No Status: Acute (4) CAD (coronary artery disease) Current Visit: No Status: Chronic Qualifiers: Coronary Disease-Associated Artery/Lesion type: [place] artery [place] vs. transplanted heart: [place] heart Associated angina: without angina Qualified Code(s): I25.10 - Atherosclerotic heart disease of [place] coronary artery without angina pectoris (5) HTN (hypertension) Current Visit: No Status: Chronic (6) Ischemic cardiomyopathy Current Visit: No Status: Chronic Subjective Date of service: 08/06/19 Interval history: The patient is lying in bed in NAD. LifeVest in place. He has no complaints. Telemetry reviewed - SB in 50s with no events. BPs borderline. Objective Last Vital Signs Temp 98.0 F 08/06/19 05:24 Pulse 65 08/06/19 08:12 Resp 20 08/06/19 05:24 BP 118/86 08/06/19 08:12 Pulse Ox 97 08/06/19 08:48 - Physical Examination General: No Apparent Distress HEENT: Positive: PERRL, Normocephaly, Mucus Membranes Moist Neck: Positive: neck supple, trachea midline Cardiac: Positive: Regular Rhythm, Bradycardia Lungs: Positive: Normal Exam Neuro: Positive: Grossly Intact Abdomen: Positive: Unremarkable. Negative: Tender /Rectal: Other (deferred) Skin: Positive: Clear. Negative: Rash Musculoskeletal: No Pain Extremities: Present: normal. Absent: edema - Labs and Meds Comprehensive Metabolic Panel 08/06/19 Range/Units 09:09 Sodium 141 (137-145) mmol/L Potassium 3.8 (3.6-5.0) mmol/L Chloride 99.5 (98-107) mmol/L Carbon Dioxide 30 (22-30) mmol/L BUN 16 (9-20) mg/dL Creatinine 0.9 (0.8-1.5) mg/dL Glucose 125 H (75-100) mg/dL Calcium 8.9 (8.4-10.2) mg/dL - Imaging and Cardiology EKG: report reviewed, image reviewed Echo: report reviewed (05/2019 showed EF 10-15%, mild LVH, RV systolic function mildly reduced, trace AR and MR, mild to mod TR, RVSP 36mmHg. ) Cardiac cath: report reviewed (05/2019 showed left main patent, LAD patent stents, circ patent, ramus upper branch patent stent, lower branch patent, OM1 and OM2 patent, RCA mid stent patent with mild irregularities, severe LV dysfunction. ) - EKG Sinus rhythms and dysrhythmias: sinus rhythm
[2019-08-06] MEDS: SPIRONOLACTONE 25 MG TAB PO SCH (10:00)
[2019-08-06] MEDS: carvediloL 3.125 MG TAB PO SCH ×2 (10:00→22:50)
[2019-08-06] MEDS: ASPIRIN 81 MG TAB CHEW PO SCH (10:09)
[2019-08-06] MEDS: FAMOTIDINE 20 MG TAB PO SCH ×2 (10:09→22:50)
[2019-08-06] MEDS: ENOXAPARIN 40 MG/0.4 ML INJ SUB-Q SCH (10:10)
[2019-08-06] MEDS: LISINOPRIL 20 MG TAB PO SCH (14:06)
[2019-08-06] MEDS: FUROSEMIDE 40 MG TAB PO SCH (14:06)
--- NOTE | 2019-08-06 14:27 | Progress Note ---
Assessment and Plan Assessment and plan: Patient is a 54 yo man with a past medical history of CAD s/p PCI, ICMP, HFrEF, HTN and HLP who presented to [facility] ED with chest pains, sob. He was just discharge from here ([facility]) on 07/28/2019 after treat of PNA and HFrEF. He is being admitted for CHF exacerbation. Pt noted to have brief runs NSVT and is known to have severe ICMP with EF 10-15% and thus cardiac defibrillator is recommended. Pt is agreeable to LifeVest at this time and will plan to evaluate for AICD candidacy as OP. LifeVest ordered today. * LHC done 05/2019 showed left main patent, LAD patent stents, circ patent, ramus upper branch patent stent, lower branch patent, OM1 and OM2 patent, RCA mid stent patent with mild irregularities, severe LV dysfunction. * Echo done 05/2019 showed EF 10-15%, mild LVH, RV systolic function mildly reduced, trace AR and MR, mild to mod TR, RVSP 36mmHg. * Cardiac cath: report reviewed (05/2019 showed left main patent, LAD patent stents, circ patent, ramus upper branch patent stent, lower branch patent, OM1 and OM2 patent, RCA mid stent patent with mild irregularities, severe LV dysfunction. ) * 2v CXR FINDINGS: SUPPORT DEVICES: None. HEART / MEDIASTINUM: Moderately enlarged but stable. LUNGS / PLEURA: Chronically increased interstitial markings are seen unchanged. There may be trace effusions. No pneumothorax. Right middle lobe density may be chronic. ADDITIONAL FINDINGS: No significant additional findings. IMPRESSION: 1. No significant change Acute on chronic systolic heart failure: treat with diuretics NSVT with EF 10-15%: LIFEVEST Chest pains, angina: treat medically, Cardiology is following, continue telemetry H/o Ischemic cardiomyopathy H/O CAD (coronary artery disease) H/O Stented coronary artery HTN (hypertension) Hyperlipidemia type: mixed hyperlipidemia Qualified Code(s): E78.2 - Mixed hyperlipidemia History of alcohol abuse Tobacco use: financial services counselor on stopping, he is down to 1-2 cigs/day Disposition: continue inpatient care, patient still having runs of NSVT, LIF EVEST on, discharge once Cardiology clears. History Interval history: Patient was seen and examined. Follow-up on current diagnosis of CHF. No overnight events reported to me. Patient denies any nausea/vomiting or severe headaches. Imaging, nursing note, chart, labs and old chart reviewed. Discussed with patient. Gen: WDWN, NAD, Awake, Alert, Orientated HEENT: NCAT, EOMI, PERRL, OP Clear Neck: supple, no adenopathy, no thyromegaly, no JVD CVS/Heart: RRR, normal S1S2, pulses present bilaterally Chest/Lungs: diminished bs bilateral, Symmetrical chest expansion, good air entry bilaterally GI/Abdomen: soft, NTND, good bowel sounds, no guarding or rebound /Bladder: no suprapubic tenderness, no CVA or paraspinal tenderness Extermity/Skin: no c/c/e, no obvious rash MSK: FROM x 4 Neuro: CN 2-12 grossly intact, no new focal deficits Psych: calm Hospitalist Physical - Physical exam Narrative exam: Gen: WDWN, NAD, Awake, Alert, Orientated x3, lifeVEST on HEENT: NCAT, EOMI, PERRL, OP Clear Neck: supple, no adenopathy, no thyromegaly, no JVD CVS/Heart: RRR, normal S1S2, pulses present bilaterally Chest/Lungs: CTA B, Symmetrical chest expansion, good air entry bilaterally GI/Abdomen: soft, NTND, good bowel sounds, no guarding or rebound /Bladder: no suprapubic tenderness, no CVA or paraspinal tenderness Extermity/Skin: no c/c/e, no obvious rash MSK: FROM x 4 Neuro: CN 2-12 grossly intact, no new focal deficits Psych: calm - Constitutional Vitals: Temp Pulse Resp BP Pulse Ox 98.0 F 60 16 111/56 99 08/06/19 05:24 08/06/19 14:06 08/06/19 10:00 08/06/19 14:06 08/06/19 11:08 General appearance: Present: no acute distress Results - Labs CBC & Chem 7: 08/04/19 04:44 08/06/19 09:09 Labs: Laboratory Last Values WBC 5.1 K/mm3 (4.5-11.0) 08/04/19 04:44 RBC 4.68 M/mm3 (3.65-5.03) 08/04/19 04:44 Hgb 13.9 gm/dl (11.8-15.2) 08/04/19 04:44 Hct 42.2 % (35.5-45.6) 08/04/19 04:44 MCV 90 fl (84-94) 08/04/19 04:44 MCH 30 pg (28-32) 08/04/19 04:44 MCHC 33 % (32-34) 08/04/19 04:44 RDW 15.3 % (13.2-15.2) H 08/04/19 04:44 Plt Count 200 K/mm3 (140-440) 08/04/19 04:44 Lymph % (Auto) 16.5 % (13.4-35.0) 08/04/19 04:44 [place] % (Auto) 1.9 % (0.0-7.3) 08/04/19 04:44 Eos % (Auto) 0.5 % (0.0-4.3) 08/04/19 04:44 Baso % (Auto) 0.5 % (0.0-1.8) 08/04/19 04:44 Lymph # 0.8 K/mm3 (1.2-5.4) L 08/04/19 04:44 [place] # 0.1 K/mm3 (0.0-0.8) 08/04/19 04:44 Eos # 0.0 K/mm3 (0.0-0.4) 08/04/19 04:44 Baso # 0.0 K/mm3 (0.0-0.1) 08/04/19 04:44 Seg Neutrophils % 80.6 % (40.0-70.0) H 08/04/19 04:44 Seg Neutrophils # 4.2 K/mm3 (1.8-7.7) 08/04/19 04:44 PT 13.5 Sec. (12.2-14.9) 08/03/19 21:01 INR 1.04 (0.87-1.13) 08/03/19 21:01 APTT 27.4 Sec. (24.2-36.6) 08/03/19 21:01 D-Dimer 233.21 ng/mlDDU (0-234) 08/04/19 00:03 Sodium 141 mmol/L (137-145) 08/06/19 09:09 Potassium 3.8 mmol/L (3.6-5.0) 08/06/19 09:09 Chloride 99.5 mmol/L (98-107) 08/06/19 09:09 Carbon Dioxide 30 mmol/L (22-30) 08/06/19 09:09 Anion Gap 15 mmol/L 08/06/19 09:09 BUN 16 mg/dL (9-20) 08/06/19 09:09 Creatinine 0.9 mg/dL (0.8-1.5) 08/06/19 09:09 Estimated GFR > 60 ml/min 08/06/19 09:09 BUN/Creatinine Ratio 18 % 08/06/19 09:09 Glucose 125 mg/dL (75-100) H 08/06/19 09:09 POC Glucose 101 (70-105) 08/06/19 11:44 Calcium 8.9 mg/dL (8.4-10.2) 08/06/19 09:09 Magnesium 1.70 mg/dL (1.7-2.3) 08/06/19 09:09 Total Bilirubin 1.50 mg/dL (0.1-1.2) H 08/03/19 21:01 AST 14 units/L (5-40) 08/03/19 21:01 ALT 10 units/L (7-56) 08/03/19 21:01 Alkaline Phosphatase 65 units/L (35-129) 08/03/19 21:01 Troponin T 0.037 ng/mL (0.00-0.029) H 08/04/19 00:03 NT-Pro-B Natriuret Pep 3172 pg/mL (0-900) H 08/04/19 00:03 Total Protein 6.6 g/dL (6.3-8.2) 08/03/19 21:01 Albumin 3.8 g/dL (3.9-5) L 08/03/19 21:01 Albumin/Globulin Ratio 1.4 % 08/03/19 21:01 Triglycerides 91 mg/dL (2-149) 08/03/19 21:01 Cholesterol 128 mg/dL (50-199) 08/03/19 21:01 LDL Cholesterol Direct 77 mg/dL (50-130) 08/03/19 21:01 HDL Cholesterol 49 mg/dL (40-59) 08/03/19 21:01 Cholesterol/HDL Ratio 2.61 % 08/03/19 21:01 Active Medications - Current Medications Current Medications: Generic Name Dose Route Start Last Admin Trade Name Freq PRN Reason Stop Dose Admin Acetaminophen 650 mg 08/04/19 02:30 08/06/19 06:51 Tylenol PO 650 mg Q4H PRN Administration Pain MILD(1-3)/Fever >100.5/MCKEON Aspirin 81 mg 08/04/19 10:00 08/06/19 10:09 Baby Aspirin PO 81 mg QDAY MELISSA Administration Carvedilol 3.125 mg 08/04/19 10:00 08/06/19 10:00 Coreg PO Not Given BID MELISSA Dextrose 50 ml 08/04/19 02:30 D50w (25gm) Syringe IV Q30MIN PRN Hypoglycemia Protocol Enoxaparin Sodium 40 mg 08/04/19 10:00 08/06/19 10:10 Enoxaparin SUB-Q 40 mg QDAY@1000 MELISSA Administration Famotidine 20 mg 08/04/19 10:00 08/06/19 10:09 Pepcid PO 20 mg BID MELISSA Administration Furosemide 40 mg 08/06/19 10:00 08/06/19 14:06 Lasix PO 40 mg DAILY@0600 MELISSA Administration Insulin Human Lispro 0 unit 08/04/19 07:30 08/06/19 12:00 Humalog SUB-Q Not Given ACHS [facility] Protocol Lisinopril 20 mg 08/04/19 10:00 08/06/19 14:06 Zestril PO 20 mg QDAY MELISAS Administration Ondansetron HCl 4 mg 08/04/19 02:30 Zofran IV Q8H PRN Nausea And Vomiting Oxycodone/Acetaminophen 1 tab 08/04/19 02:30 08/05/19 18:22 Percocet 5/325 PO 1 tab Q6H PRN Administration Pain, Moderate (4-6) Pravastatin Sodium 40 mg 08/04/19 22:00 08/05/19 22:32 Pravachol PO 40 mg QHS MELISSA Administration Sodium Chloride 10 ml 08/04/19 10:00 08/06/19 10:11 Sodium Chloride Flush Syringe 10 Ml IV 10 ml BID MELISSA Administration Sodium Chloride 10 ml 08/04/19 02:30 Sodium Chloride Flush Syringe 10 Ml IV PRN PRN LINE FLUSH Spironolactone 25 mg 08/04/19 10:00 08/06/19 10:00 Aldactone PO Not Given QDAY MELISSA
[2019-08-06] MEDS: PRAVASTATIN 40 MG TAB PO SCH (22:50)
[2019-08-07] MEDS: FUROSEMIDE 40 MG TAB PO SCH (06:28)
[2019-08-07] MEDS: ENOXAPARIN 40 MG/0.4 ML INJ SUB-Q SCH (10:57)
[2019-08-07] MEDS: ASPIRIN 81 MG TAB CHEW PO SCH (10:58)
[2019-08-07] MEDS: carvediloL 3.125 MG TAB PO SCH (10:58)
[2019-08-07] MEDS: LISINOPRIL 20 MG TAB PO SCH (10:59)
[2019-08-07] MEDS: FAMOTIDINE 20 MG TAB PO SCH (10:59)
[2019-08-07] MEDS: SPIRONOLACTONE 25 MG TAB PO SCH (11:05)
[2019-08-07 12:28] VITALS: BP 112/79
--- NOTE | 2019-08-07 12:41 | Progress Note ---
Assessment and Plan Currently stable cardiac status. Pt may discharge from cardiology standpoint on present cardiac regimen, including coreg, lisinopril, PO lasix and aldactone. LifeVest in place. Follow up in our [place] office with Dr. Cassidy on 08/10/2019 @ 2:15PM. The patient has been seen in conjunction with Dr. Sands who agrees with the assessment and plan of care. - Patient Problems (1) Acute on chronic HFrEF (heart failure with reduced ejection fraction) Current Visit: Yes Status: Acute (2) Chest pain Current Visit: Yes Status: Resolved (3) Ischemic cardiomyopathy Current Visit: Yes Status: Chronic (4) CAD (coronary artery disease) Current Visit: Yes Status: Chronic Qualifiers: Coronary Disease-Associated Artery/Lesion type: [place] artery [place] vs. transplanted heart: [place] heart Associated angina: without angina Qualified Code(s): I25.10 - Atherosclerotic heart disease of [place] coronary artery without angina pectoris (5) Stented coronary artery Current Visit: Yes Status: Chronic (6) HTN (hypertension) Current Visit: Yes Status: Chronic (7) Hyperlipidemia Current Visit: Yes Status: Chronic Qualifiers: Hyperlipidemia type: mixed hyperlipidemia Qualified Code(s): E78.2 - Mixed hyperlipidemia (8) History of alcohol abuse Current Visit: Yes Status: Chronic (9) Tobacco use Current Visit: Yes Status: Chronic (10) NSVT Current Visit: Yes Status: Acute Subjective Date of service: 08/07/19 Principal diagnosis: hf Interval history: pt resting comfortably in bed, no current complaints. LifeVest in place. in SR/SB on tele with occasional PVCs. Objective Last Vital Signs Temp 98.1 F 08/07/19 12:26 Pulse 58 L 08/07/19 12:26 Resp 18 08/07/19 12:26 BP 112/79 08/07/19 12:26 Pulse Ox 100 08/07/19 12:26 - Physical Examination General: No Apparent Distress HEENT: Positive: PERRL, Normocephaly, Mucus Membranes Moist Neck: Positive: neck supple, trachea midline Cardiac: Positive: Reg Rate and Rhythm, S1/S2 Lungs: Positive: Decreased Breath Sounds Neuro: Positive: Grossly Intact Abdomen: Positive: Unremarkable. Negative: Tender /Rectal: Other (deferred) Skin: Positive: Clear. Negative: Rash Musculoskeletal: No Pain Extremities: Present: normal. Absent: edema - Imaging and Cardiology EKG: report reviewed, image reviewed Echo: report reviewed (05/2019 showed EF 10-15%, mild LVH, RV systolic function mildly reduced, trace AR and MR, mild to mod TR, RVSP 36mmHg. ) Cardiac cath: report reviewed (05/2019 showed left main patent, LAD patent stents , circ patent, ramus upper branch patent stent, lower branch patent, OM1 and OM2 patent, RCA mid stent patent with mild irregularities, severe LV dysfunction. ) - EKG Sinus rhythms and dysrhythmias: sinus rhythm
--- NOTE | 2019-08-07 13:23 | Progress Note ---
Assessment and Plan Assessment and plan: Patient is a 54 yo man with a past medical history of CAD s/p PCI, ICMP, HFrEF, HTN and HLP who presented to [facility] ED with chest pains, sob. He was just discharge from here ([facility]) on 07/28/2019 after treat of PNA and HFrEF. He is being admitted for CHF exacerbation. Pt noted to have brief runs NSVT and is known to have severe ICMP with EF 10-15% and thus cardiac defibrillator is recommended. Pt is agreeable to LifeVest at this time and will plan to evaluate for AICD candidacy as OP. LifeVest ordered today. * LHC done 05/2019 showed left main patent, LAD patent stents, circ patent, ramus upper branch patent stent, lower branch patent, OM1 and OM2 patent, RCA mid stent patent with mild irregularities, severe LV dysfunction. * Echo done 05/2019 showed EF 10-15%, mild LVH, RV systolic function mildly reduced, trace AR and MR, mild to mod TR, RVSP 36mmHg. * Cardiac cath: report reviewed (05/2019 showed left main patent, LAD patent stents, circ patent, ramus upper branch patent stent, lower branch patent, OM1 and OM2 patent, RCA mid stent patent with mild irregularities, severe LV dysfunction. ) * 2v CXR FINDINGS: SUPPORT DEVICES: None. HEART / MEDIASTINUM: Moderately enlarged but stable. LUNGS / PLEURA: Chronically increased interstitial markings are seen unchanged. There may be trace effusions. No pneumothorax. Right middle lobe density may be chronic. ADDITIONAL FINDINGS: No significant additional findings. IMPRESSION: 1. 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 History Interval history: Patient was seen and examined. Follow-up on current diagnosis of CHF. No overnight events reported to me. Patient denies any nausea/vomiting or severe headaches. Imaging, nursing note, chart, labs and old chart reviewed. Discussed with patient. Gen: WDWN, NAD, Awake, Alert, Orientated HEENT: NCAT, EOMI, PERRL, OP Clear Neck: supple, no adenopathy, no thyromegaly, no JVD CVS/Heart: RRR, normal S1S2, pulses present bilaterally Chest/Lungs: diminished bs bilateral, Symmetrical chest expansion, good air entry bilaterally GI/Abdomen: soft, NTND, good bowel sounds, no guarding or rebound /Bladder: no suprapubic tenderness, no CVA or paraspinal tenderness Extermity/Skin: no c/c/e, no obvious rash MSK: FROM x 4 Neuro: CN 2-12 grossly intact, no new focal deficits Psych: calm Hospitalist Physical - Physical exam Narrative exam: Gen: WDWN, NAD, Awake, Alert, Orientated x3, lifeVEST on HEENT: NCAT, EOMI, PERRL, OP Clear Neck: supple, no adenopathy, no thyromegaly, no JVD CVS/Heart: RRR, normal S1S2, pulses present bilaterally Chest/Lungs: CTA B, Symmetrical chest expansion, good air entry bilaterally GI/Abdomen: soft, NTND, good bowel sounds, no guarding or rebound /Bladder: no suprapubic tenderness, no CVA or paraspinal tenderness Extermity/Skin: no c/c/e, no obvious rash MSK: FROM x 4 Neuro: CN 2-12 grossly intact, no new focal deficits Psych: calm - Constitutional Vitals: Temp Pulse Resp BP Pulse Ox 98.1 F 58 L 18 112/79 100 08/07/19 12:26 08/07/19 12:26 08/07/19 12:26 08/07/19 12:26 08/07/19 12:26 General appearance: Present: no acute distress Results - Labs CBC & Chem 7: 08/04/19 04:44 08/06/19 09:09 Labs: Laboratory Last Values WBC 5.1 K/mm3 (4.5-11.0) 08/04/19 04:44 RBC 4.68 M/mm3 (3.65-5.03) 08/04/19 04:44 Hgb 13.9 gm/dl (11.8-15.2) 08/04/19 04:44 Hct 42.2 % (35.5-45.6) 08/04/19 04:44 MCV 90 fl (84-94) 08/04/19 04:44 MCH 30 pg (28-32) 08/04/19 04:44 MCHC 33 % (32-34) 08/04/19 04:44 RDW 15.3 % (13.2-15.2) H 08/04/19 04:44 Plt Count 200 K/mm3 (140-440) 08/04/19 04:44 Lymph % (Auto) 16.5 % (13.4-35.0) 08/04/19 04:44 [place] % (Auto) 1.9 % (0.0-7.3) 08/04/19 04:44 Eos % (Auto) 0.5 % (0.0-4.3) 08/04/19 04:44 Baso % (Auto) 0.5 % (0.0-1.8) 08/04/19 04:44 Lymph # 0.8 K/mm3 (1.2-5.4) L 08/04/19 04:44 [place] # 0.1 K/mm3 (0.0-0.8) 08/04/19 04:44 Eos # 0.0 K/mm3 (0.0-0.4) 08/04/19 04:44 Baso # 0.0 K/mm3 (0.0-0.1) 08/04/19 04:44 Seg Neutrophils % 80.6 % (40.0-70.0) H 08/04/19 04:44 Seg Neutrophils # 4.2 K/mm3 (1.8-7.7) 08/04/19 04:44 PT 13.5 Sec. (12.2-14.9) 08/03/19 21:01 INR 1.04 (0.87-1.13) 08/03/19 21:01 APTT 27.4 Sec. (24.2-36.6) 08/03/19 21:01 D-Dimer 233.21 ng/mlDDU (0-234) 08/04/19 00:03 Sodium 141 mmol/L (137-145) 08/06/19 09:09 Potassium 3.8 mmol/L (3.6-5.0) 08/06/19 09:09 Chloride 99.5 mmol/L (98-107) 08/06/19 09:09 Carbon Dioxide 30 mmol/L (22-30) 08/06/19 09:09 Anion Gap 15 mmol/L 08/06/19 09:09 BUN 16 mg/dL (9-20) 08/06/19 09:09 Creatinine 0.9 mg/dL (0.8-1.5) 08/06/19 09:09 Estimated GFR > 60 ml/min 08/06/19 09:09 BUN/Creatinine Ratio 18 % 08/06/19 09:09 Glucose 125 mg/dL (75-100) H 08/06/19 09:09 POC Glucose 88 (70-105) 08/07/19 11:23 Calcium 8.9 mg/dL (8.4-10.2) 08/06/19 09:09 Magnesium 1.70 mg/dL (1.7-2.3) 08/06/19 09:09 Total Bilirubin 1.50 mg/dL (0.1-1.2) H 08/03/19 21:01 AST 14 units/L (5-40) 08/03/19 21:01 ALT 10 units/L (7-56) 08/03/19 21:01 Alkaline Phosphatase 65 units/L (35-129) 08/03/19 21:01 Troponin T 0.037 ng/mL (0.00-0.029) H 08/04/19 00:03 NT-Pro-B Natriuret Pep 3172 pg/mL (0-900) H 08/04/19 00:03 Total Protein 6.6 g/dL (6.3-8.2) 08/03/19 21:01 Albumin 3.8 g/dL (3.9-5) L 08/03/19 21:01 Albumin/Globulin Ratio 1.4 % 08/03/19 21:01 Triglycerides 91 mg/dL (2-149) 08/03/19 21:01 Cholesterol 128 mg/dL (50-199) 08/03/19 21:01 LDL Cholesterol Direct 77 mg/dL (50-130) 08/03/19 21:01 HDL Cholesterol 49 mg/dL (40-59) 08/03/19 21:01 Cholesterol/HDL Ratio 2.61 % 08/03/19 21:01 Active Medications - Current Medications Current Medications: Generic Name Dose Route Start Last Admin Trade Name Freq PRN Reason Stop Dose Admin Acetaminophen 650 mg 08/04/19 02:30 08/06/19 23:41 Tylenol PO 650 mg Q4H PRN Administration Pain MILD(1-3)/Fever >100.5/MCKEON Aspirin 81 mg 08/04/19 10:00 08/07/19 10:58 Baby Aspirin PO 81 mg QDAY MELISSA Administration Carvedilol 3.125 mg 08/04/19 10:00 08/07/19 10:58 Coreg PO 3.125 mg BID MELISSA Administration Dextrose 50 ml 08/04/19 02:30 D50w (25gm) Syringe IV Q30MIN PRN Hypoglycemia Protocol Enoxaparin Sodium 40 mg 08/04/19 10:00 08/07/19 10:57 Enoxaparin SUB-Q 40 mg QDAY@1000 MELISSA Administration Famotidine 20 mg 08/04/19 10:00 08/07/19 10:59 Pepcid PO 20 mg BID MELISSA Administration Furosemide 40 mg 08/06/19 10:00 08/07/19 06:28 Lasix PO 40 mg DAILY@0600 MELISSA Administration Insulin Human Lispro 0 unit 08/04/19 07:30 08/06/19 22:50 Humalog SUB-Q Not Given ACHS [facility] Protocol Lisinopril 20 mg 08/04/19 10:00 08/07/19 10:59 Zestril PO 20 mg QDAY MELISSA Administration Ondansetron HCl 4 mg 08/04/19 02:30 Zofran IV Q8H PRN Nausea And Vomiting Oxycodone/Acetaminophen 1 tab 08/04/19 02:30 08/05/19 18:22 Percocet 5/325 PO 1 tab Q6H PRN Administration Pain, Moderate (4-6) Pravastatin Sodium 40 mg 08/04/19 22:00 08/06/19 22:50 Pravachol PO 40 mg QHS MELISSA Administration Sodium Chloride 10 ml 08/04/19 10:00 08/07/19 11:00 Sodium Chloride Flush Syringe 10 Ml IV 10 ml BID MELISSA Administration Sodium Chloride 10 ml 08/04/19 02:30 Sodium Chloride Flush Syringe 10 Ml IV PRN PRN LINE FLUSH Spironolactone 25 mg 08/04/19 10:00 08/07/19 11:05 Aldactone PO 25 mg QDAY MELISSA Administration
--- NOTE | 2019-08-07 13:28 | Discharge Summary ---
Providers - Providers Date of Admission: 08/04/19 16:10 Date of discharge: 08/07/19 Attending physician: CHACORTA MONAE 08/04/19 02:30 Consult to Physician [CONS] Routine Comment: Consulting Provider: MITCH RODRÍGUEZ Physician Instructions: Reason For Exam: bang Primary care physician: [employer] Hospitalization Condition: Fair Hospital course: Patient is a 54 yo man with a past medical history of CAD s/p PCI, ICMP, HFrEF, HTN and HLP who presented to [facility] ED with chest pains, sob. He was just discharge from here ([facility]) on 07/28/2019 after treat of PNA and HFrEF. He is being admitted for CHF exacerbation. Pt noted to have brief runs NSVT and is known to have severe ICMP with EF 10-15% and thus cardiac defibrillator is anna mmended. Pt is agreeable to LifeVest at this time and will plan to evaluate for AICD candidacy as OP. LifeVest ordered today. * LHC done 05/2019 showed left main patent, LAD patent stents, circ patent, ramus upper branch patent stent, lower branch patent, OM1 and OM2 patent, RCA mid stent patent with mild irregularities, severe LV dysfunction. * Echo done 05/2019 showed EF 10-15%, mild LVH, RV systolic function mildly reduced, trace AR and MR, mild to mod TR, RVSP 36mmHg. * Cardiac cath: report reviewed (05/2019 showed left main patent, LAD patent stents, circ patent, ramus upper branch patent stent, lower branch patent, OM1 and OM2 patent, RCA mid stent patent with mild irregularities, severe LV dysfunction. ) * 2v CXR FINDINGS: SUPPORT DEVICES: None. HEART / MEDIASTINUM: Moderately enlarged but stable. LUNGS / PLEURA: Chronically increased interstitial markings are seen unchanged. There may be trace effusions. No pneumothorax. Right middle lobe density may be chronic. ADDITIONAL FINDINGS: No significant additional findings. IMPRESSION: 1. 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 Cassidy on 08/10/2019 @ 2:15PM. Disposition: DC-01 TO HOME OR SELFCARE Time spent for discharge: 36 minutes Core Measure Documentation - Palliative Care Palliative Care/ Comfort Measures: Not Applicable - Core Measures Any of the following diagnoses?: none - VTE Discharge Requirements Deep Vein Thrombosis/Pulmonary Embolism Present on Admission: No Has pt received <5 days of overlap therapy or INR<2.0: No Anticoagulant overlap therapy prescribed at discharge: No Contraindication No Overlap Therapy order at DC: Not Indicated Exam - Physical Exam Narrative exam: Gen: WDWN, NAD, Awake, Alert, Orientated x3, lifeVEST on HEENT: NCAT, EOMI, PERRL, OP Clear Neck: supple, no adenopathy, no thyromegaly, no JVD CVS/Heart: RRR, normal S1S2, pulses present bilaterally Chest/Lungs: CTA B, Symmetrical chest expansion, good air entry bilaterally GI/Abdomen: soft, NTND, good bowel sounds, no guarding or rebound /Bladder: no suprapubic tenderness, no CVA or paraspinal tenderness Extermity/Skin: no c/c/e, no obvious rash MSK: FROM x 4 Neuro: CN 2-12 grossly intact, no new focal deficits Psych: calm - Constitutional Vitals: Temp Pulse Resp BP Pulse Ox 98.1 F 58 L 18 112/79 100 08/07/19 12:26 08/07/19 12:26 08/07/19 12:26 08/07/19 12:26 08/07/19 12:26 Plan Activity: other (no strenous activity) Diet: low salt, diabetic Follow up with: RADHA CASSIDY MD [Staff Physician] - 7 Days (Follow up in our [place] office with Dr. Cassidy on 08/10/2019 @ 2:15PM. ) PRIMARY CARE, [Primary Care Provider] - 3-5 Days Prescriptions: Furosemide [Lasix TAB] 40 mg PO DAILY@0600 #30 tablet oxyCODONE /ACETAMINOPHEN [Percocet 5/325 mg] 1 tab PO Q6H PRN #15 tablet PRN Reason: Pain , Severe (7-10)
== END 2019-08-07 16:30 | disposition home or self-care (01) | DRG 308 ==
LOC: ED 19:30 → 4A 08-04 02:54 → INTOOBSV 08-04 02:54 → OBSVTOIN 08-04 16:10
PROVIDERS: ADMIT Internal Medicine; ATTEND Internal Medicine
DX: I47.2 Ventricular tachycardia (principal); I50.43 Acute on chronic combined systolic (congestive) and diastolic (congestive) heart failure; I25.5 Ischemic cardiomyopathy; E78.2 Mixed hyperlipidemia; I25.118 Atherosclerotic heart disease of native coronary artery with other forms of angina pectoris; F17.210 Nicotine dependence, cigarettes, uncomplicated; I11.0 Hypertensive heart disease with heart failure; Z71.6 Tobacco abuse counseling; Z79.82 Long term (current) use of aspirin; Z79.899 Other long term (current) drug therapy; Z91.013 Allergy to seafood; Z82.49 Family history of ischemic heart disease and other diseases of the circulatory system; Z83.3 Family history of diabetes mellitus; Z95.5 Presence of coronary angioplasty implant and graft
CPT/HCPCS: 36415; 71046; 80048; 80053; 80061; 82962; 83735; 83880; 84484; 85025; 85379; 85610; 85730; 87116; 93005; 93010; 94644; 94760; 96374; 96375; 99406; G0378; A9270-GY; J1650; J1940; J2930

== ENCOUNTER 2019-08-12 17:44 | Emergency (ER) | payer MEDICARE ==
[2019-08-12] MEDS ORDERED: ASPIRIN 325 MG TAB PO ONE (18:12)
--- NOTE | 2019-08-12 18:13 | Event Note ---
ED Screening Note Date of service: 08/12/19 Time: 18:09 ED Screening Note: This is a 54 y.o. M. that presents to the ER with chest pain and SOB for 1 week. PMH of CHF and HTN, Life vest This initial assessment/diagnostic orders/clinical plan/treatment(s) is/are subject to change based on patients health status, clinical progression and re- assessment by fellow clinical providers in the ED. Further treatment and workup at subsequent clinical providers discretion. Patient/guardian urged not to elope from the ED as their condition may be serious if not clinically assessed and managed. Initial orders include: Labs, ekg, and cxr
--- NOTE | 2019-08-12 18:52 | XRay Report ---
CHEST 1 VIEW 08/12/2019 6:35 PM INDICATION / CLINICAL INFORMATION: Chest Pain. COMPARISON: 08/03/2019 FINDINGS: SUPPORT DEVICES: None. HEART / MEDIASTINUM: Stable mild cardiomegaly. LUNGS / PLEURA: The right lower lung parenchymal opacities seen on the prior study have resolved. No pneumothorax. ADDITIONAL FINDINGS: No significant additional findings. IMPRESSION: 1. No acute findings. Right lower lung parenchymal opacities seen on the prior study have resolved. Signer Name: Dakota Thakkar MD Signed: 08/12/2019 6:48 PM Workstation Name: [id number]
[2019-08-12 19:10] LABS: Basophils % (Auto) 0.8 % (0.0-1.8); Eosinophils # (Auto) 0.1 K/mm3 (0.0-0.4); Eosinophils % (Auto) 1.5 % (0.0-4.3); Hematocrit 40.6 % (35.5-45.6); Hemoglobin 13.8 gm/dl (11.8-15.2); Lymphocytes # (Auto) 2.2 K/mm3 (1.2-5.4); Lymphocytes % (Auto) 36.6 % (13.4-35.0); Mean Corpuscular HGB Conc 34 % (32-34); Mean Corpuscular Volume 89 fl (84-94); Monocytes # (Auto) 0.4 K/mm3 (0.0-0.8); Monocytes % (Auto) 6.1 % (0.0-7.3); Platelet Count 225 K/mm3 (140-440); Red Blood Count 4.56 M/mm3 (3.65-5.03); Red Cell Distribution Width 15.4 % (13.2-15.2)
[2019-08-12 19:31] LABS: BUN/Creatinine Ratio 8; Blood Urea Nitrogen 9 mg/dL (9-20); Calcium 9.2 mg/dL (8.4-10.2); Hemolysis Index 16
[2019-08-12] MEDS ORDERED: LORazepam 2 MG/ML VIAL IV ONE (20:10)
--- NOTE | 2019-08-12 20:19 | Emergency Department Report ---
HPI - General Chief Complaint: Dyspnea/Respdistress Time Seen by Provider: 08/12/19 18:09 - HPI HPI: Room 22 The pt is a 54 y/o M p/w a cc of SOB and MCKEON. The pt states his sx's began YD with intermittent SOB unrelated to activity. Pt states the SOB increased today. Py denies CP or Fever. Pt states he's had a MCKEON x 6 days. Pt states he's been compliant with all of his medications. Pt gives his MCKEON a score of 9.5/10 ED Past Medical Hx - Past Medical History Previous Medical History?: Yes Hx Hypertension: Yes Hx Congestive Heart Failure: Yes Hx Diabetes: Yes Additional medical history: HEART BLOCKAGE 30% 2-3 years ago - Surgical History Past Surgical History?: Yes Hx Coronary Stent: Yes Additional Surgical History: Rt eye surgery - Family History Family history: no significant - Social History Smoking Status: Current Every Day Smoker Substance Use Type: None (denies illicit drug use), Alcohol (occ) - Medications Home Medications: Home Medications Medication Instructions Recorded Confirmed Last Taken Type Aspirin [Aspirin BABY CHEW TAB] 81 mg PO QDAY #30 tab.chew 07/28/19 08/04/19 Unknown Rx Famotidine [Pepcid] 20 mg PO BID #60 tablet 07/28/19 08/04/19 Unknown Rx Lisinopril [Zestril TAB] 20 mg PO QDAY #30 tablet 07/28/19 08/04/19 Unknown Rx Pravastatin [Pravachol] 40 mg PO QHS #30 tablet 07/28/19 08/04/19 Unknown Rx Spironolactone [Aldactone] 25 mg PO QDAY #30 tablet 07/28/19 08/04/19 Unknown Rx carvediloL [Coreg] 3.125 mg PO BID #60 tablet 07/28/19 08/04/19 Unknown Rx Acetaminophen [Acetaminophen TAB] 2 tab PO Q4H PRN #15 tablet 08/07/19 Unknown Rx Furosemide [Lasix TAB] 40 mg PO DAILY@0600 #30 tablet 08/07/19 Unknown Rx oxyCODONE /ACETAMINOPHEN [Percocet 1 tab PO Q6H PRN #15 tablet 08/07/19 Unknown Rx 5/325 mg] ALBUTEROL Inhaler (OR & NICU) 2 puff IH QID PRN #8.5 gram 08/12/19 Unknown Rx [ProAir HFA Inhaler] Butalb/Acetamin/Caff 50-325-40 2 tab PO Q8HR PRN #14 tablet 08/12/19 Unknown Rx [Fioricet 50-325-40] ED Review of Systems ROS: Stated complaint: VERONIQUE Other details as noted in HPI Constitutional: denies: fever Eyes: denies: eye pain ENT: denies: throat pain Respiratory: shortness of breath. denies: cough Cardiovascular: denies: chest pain Endocrine: no symptoms reported Gastrointestinal: denies: nausea, vomiting Genitourinary: denies: dysuria Musculoskeletal: denies: back pain Neurological: headache Physical Exam - Physical Exam Vital Signs: Vital Signs 08/12/19 18:09 Temperature 97.6 F Pulse Rate 92 H Respiratory 24 Rate Blood Pressure 190/137 O2 Sat by Pulse 98 Oximetry Physical Exam: GEN: WD WN M sitting on stretcher in NAD HEENT: EOMI, NCAT NECK: Trachea midline, no stridor CV: rrr no m/r/g PULM: CTA bilat, no resp distress ABD: S/NT/ND +BS SKIN: No diaphoresis NEURO: GCS 15 MS: no deformity ED Course Vital Signs 08/12/19 18:09 Temperature 97.6 F Pulse Rate 92 H Respiratory 24 Rate Blood Pressure 190/137 O2 Sat by Pulse 98 Oximetry - Reevaluation(s) Reevaluation #1: 08/12/19 21:30 pt resting comfortably, denies complaints ED Medical Decision Making - Lab Data Result diagrams: 08/12/19 18:49 08/12/19 18:49 Laboratory Last Values WBC 6.1 K/mm3 (4.5-11.0) 08/12/19 18:49 RBC 4.56 M/mm3 (3.65-5.03) 08/12/19 18:49 Hgb 13.8 gm/dl (11.8-15.2) 08/12/19 18:49 Hct 40.6 % (35.5-45.6) 08/12/19 18:49 MCV 89 fl (84-94) 08/12/19 18:49 MCH 30 pg (28-32) 08/12/19 18:49 MCHC 34 % (32-34) 08/12/19 18:49 RDW 15.4 % (13.2-15.2) H 08/12/19 18:49 Plt Count 225 K/mm3 (140-440) 08/12/19 18:49 Lymph % (Auto) 36.6 % (13.4-35.0) H 08/12/19 18:49 [place] % (Auto) 6.1 % (0.0-7.3) 08/12/19 18:49 Eos % (Auto) 1.5 % (0.0-4.3) 08/12/19 18:49 Baso % (Auto) 0.8 % (0.0-1.8) 08/12/19 18:49 Lymph # 2.2 K/mm3 (1.2-5.4) 08/12/19 18:49 [place] # 0.4 K/mm3 (0.0-0.8) 08/12/19 18:49 Eos # 0.1 K/mm3 (0.0-0.4) 08/12/19 18:49 Baso # 0.0 K/mm3 (0.0-0.1) 08/12/19 18:49 Seg Neutrophils % 55.0 % (40.0-70.0) 08/12/19 18:49 Seg Neutrophils # 3.3 K/mm3 (1.8-7.7) 08/12/19 18:49 D-Dimer 182.21 ng/mlDDU (0-234) 08/12/19 22:16 Sodium 141 mmol/L (137-145) 08/12/19 18:49 Potassium 3.9 mmol/L (3.6-5.0) 08/12/19 18:49 Chloride 104.6 mmol/L (98-107) 08/12/19 18:49 Carbon Dioxide 25 mmol/L (22-30) 08/12/19 18:49 Anion Gap 15 mmol/L 08/12/19 18:49 BUN 9 mg/dL (9-20) 08/12/19 18:49 Creatinine 1.1 mg/dL (0.8-1.5) 08/12/19 18:49 Estimated GFR > 60 ml/min 08/12/19 18:49 BUN/Creatinine Ratio 8 % 08/12/19 18:49 Glucose 105 mg/dL (75-100) H 08/12/19 18:49 Calcium 9.2 mg/dL (8.4-10.2) 08/12/19 18:49 Troponin T 0.020 ng/mL (0.00-0.029) 08/12/19 18:49 - EKG Data -: EKG Interpreted by Me EKG shows normal: sinus rhythm Rate: normal - EKG Data When compared to previous EKG there are: previous EKG unavailable Interpretation: nonspecific ST-T wave lennox (TWI aVL) - Radiology Data Radiology results: report reviewed (ct head), image reviewed (ct head) [facility] [address] [place] [address] Cat Scan Report Signed Patient: CHERRY WILKINS MR#: [id number] : 1965 Acct:[id number] Age/Sex: 54 / M ADM Date: 08/12/19 Loc: ED Attending Dr: Ordering Physician: NAN DOWELL MD Date of Service: 08/12/19 Procedure(s): CT head/brain wo con Accession Number(s): [id number] cc: NAN DOWELL MD CT head/brain wo con INDICATION: Headache, hypertension. TECHNIQUE: Routine CT head without contrast. All CT scans at this location are performed using CT dose reduction for ALARA by means of automated exposure control. COMPARISON: Head CT on 08/27/2014 FINDINGS: BRAIN / INTRACRANIAL CONTENTS: No acute hemorrh age, mass effect, midline shift, or hydrocephalus. No appreciable acute large territorial or lacunar infarct. No chronic infarct or focal atrophy. Normal brain volume and ventricular/sulcal size for age. ORBITS: No significant abnormality of visualized orbits. SINUSES / MASTOIDS: No significant abnormality of visualized sinuses and mastoid air cells. ADDITIONAL FINDINGS: None. IMPRESSION: 1. No acute intracranial abnormality. Signer Name: Dakota Thakkar MD Signed: 08/12/2019 8:52 PM Workstation Name: [id number] Transcribed By: POLO Dictated By: Dakota Thakkar MD Electronically Authenticated By: Dakota Thakkar MD Signed Date/Time: 08/12/192051 DD/ 50 TD/TT: - Differential Diagnosis hypertensive urgency, CHF exacerbation, pneumonia Critical care attestation.: If time is entered above; I have spent that time in minutes in the direct care of this critically ill patient, excluding procedure time. ED Disposition Clinical Impression: Shortness of breath Disposition: DC-01 TO HOME OR SELFCARE Is pt being admited?: No Does the pt Need Aspirin: No Condition: Stable Instructions: Dyspnea (ED) Prescriptions: Butalb/Acetamin/Caff 50-325-40 [Fioricet 50-325-40] 2 tab PO Q8HR PRN #14 tablet PRN Reason: Headache ALBUTEROL Inhaler (OR & NICU) [ProAir HFA Inhaler] 2 puff IH QID PRN #8.5 gram PRN Reason: Shortness Of Breath Referrals: ZINA BAUMAN MD [Primary Care Provider] - 3-5 Days Time of Disposition: 22:43
--- NOTE | 2019-08-12 20:56 | Cat Scan Report ---
CT head/brain wo con INDICATION: Headache, hypertension. TECHNIQUE: Routine CT head without contrast. All CT scans at this location are performed using CT dos e reduction for ALARA by means of automated exposure control. COMPARISON: Head CT on 08/27/2014 FINDINGS: BRAIN / INTRACRANIAL CONTENTS: No acute hemorrhage, mass effect, midline shift, or hydrocephalus. No appreciable acute large territorial or lacunar infarct. No chronic infarct or focal atrophy. Normal b rain volume and ventricular/sulcal size for age. ORBITS: No significant abnormality of visualized orbits. SINUSES / MASTOIDS: No significant abnormality of visualized sinuses and mastoid air cells. ADDITIONAL FINDINGS: None. IMPRESSION: 1. No acute intracranial abnormality. Signer Name: Dakota Thakkar MD Signed: 08/12/2019 8:52 PM Workstation Name: [id number]
[2019-08-12 23:06] VITALS: BP 108/60
== END 2019-08-12 23:06 | disposition home or self-care (01) ==
LOC: ED 17:44
DX: R06.02 Shortness of breath (principal); I11.0 Hypertensive heart disease with heart failure; I50.9 Heart failure, unspecified; E11.9 Type 2 diabetes mellitus without complications; F17.200 Nicotine dependence, unspecified, uncomplicated; Z95.1 Presence of aortocoronary bypass graft; Z91.013 Allergy to seafood; Z79.82 Long term (current) use of aspirin; Z79.899 Other long term (current) drug therapy
CPT/HCPCS: 36415; 70450; 71045; 80048; 84484; 85025; 85379; 93005; 93010; 96374; 99285; J2060